=== PATIENT | male | born 1975 | race Caucasian/White ===

== ENCOUNTER 2019-02-20 11:00 | Inpatient (IN) | payer OTHER ==
[~2019-02-20] VITALS: Ht 175.3 cm; Wt 74.8 kg
[2019-02-20] MEDS ORDERED: PROBIOTIC1 EAC4 PO (11:25)
[2019-03-03] MEDS ORDERED: ULTRACET PO (11:52)
[2019-03-03] MEDS ORDERED: HYOSCYAMINE0.125 M1 SL (11:52)
[2019-03-03] MEDS ORDERED: GAS-X125 M1 PO (11:53)
== END 2019-03-03 13:00 | disposition home or self-care (01) | DRG 330 ==
LOC: ADM 02-22 10:00 → EDSTATUS 02-22 10:00 → SURH 02-28 06:24 → O/R 02-28 06:24 → SURH 02-28 07:00 → EDBD 02-28 10:00 → SURH 02-28 10:00
PROVIDERS: ADMIT Surgery
PROC: 0DTJ4ZZ Resection of Appendix, Percutaneous Endoscopic Approach (ICD-10-PCS; 2019-02-28)
PROC: 0DJD8ZZ Inspection of Lower Intestinal Tract, Via Natural or Artificial Opening Endoscopic (ICD-10-PCS; 2019-02-28)
PROC: 0DTN4ZZ Resection of Sigmoid Colon, Percutaneous Endoscopic Approach (ICD-10-PCS; principal; 2019-02-28 07:00)
DX: K57.20 Diverticulitis of large intestine with perforation and abscess without bleeding (principal); K63.2 Fistula of intestine; K35.890 Other acute appendicitis without perforation or gangrene; R19.4 Change in bowel habit; E78.1 Pure hyperglyceridemia